=== PATIENT | female | born 1975 | race Caucasian/White ===

== ENCOUNTER 2022-01-25 19:34 | Emergency (ER) | payer SELFPAY ==
[~2022-01-25] VITALS: Ht 152.4 cm; Wt 67.6 kg
[2022-01-25 21:10] LABS: CLARITY,URINE SL CLOUDY (CLEAR); COLOR,URINE YELLOW (YELLOW)
[2022-01-25 21:11] LABS: KETONES,URINE NEGATIVE (NEGATIVE); LEUKOCYTE ESTERASE ,URINE TRACE (NEGATIVE); NITRITE,URINE POSITIVE (NEGATIVE); PROTEIN,URINE DIPSTICK TRACE (NEGATIVE); URINE UROBILINOGEN 0.2 mg/dL (0.2 - 1)
[2022-01-25 21:27] LABS: WBC,URINE (MAN) >50 /HPF (0-5)
[2022-01-25 21:28] LABS: BACTERIA,URINE MANY /HPF; RBC,URINE >50 /HPF (0-5)
[2022-01-25 21:30] LABS: EPITHELIAL CELLS,URINE FEW /LPF
[2022-01-25] MEDS ORDERED: PYRIDIUM100 MG PO (21:58)
[2022-01-25] MEDS ORDERED: CEFDINIR300 MG PO (21:58)
== END 2022-01-25 22:05 | disposition home or self-care (01) ==
LOC: ER 19:44
DX: R10.30 Lower abdominal pain, unspecified (principal); N30.91 Cystitis, unspecified with hematuria; I10 Essential (primary) hypertension; J44.9 Chronic obstructive pulmonary disease, unspecified; F17.290 Nicotine dependence, other tobacco product, uncomplicated
CPT/HCPCS: 81001; 99282